=== PATIENT | female | born 2000 | race American Indian/Alaskan Native ===

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

== ENCOUNTER 2019-08-07 01:29 | Emergency (ER) | payer BC, MEDICAID ==
[2019-08-07 01:39] VITALS: BP 113/36
[2019-08-07] MEDS ORDERED: ACETAMINOPHEN 500 MG TAB PO ONE (02:32)
[2019-08-07] MEDS ORDERED: IBUPROFEN 600 MG TAB PO ONE (02:32)
[2019-08-07 03:52] LABS: Bilirubin,Urine NEG (Negative); Blood,Urine SM (Negative); Color,Urine Yellow (Yellow); Mucus,Urine 1+ /HPF; Protein,Urine <15 mg/dL mg/dL (Negative)
[2019-08-07 03:53] LABS: HCG Qualitative,Urine Negative (Negative)
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
== END 2019-08-07 05:12 | disposition home or self-care (01) ==
LOC: ED 01:29
DX: S43.401A Unspecified sprain of right shoulder joint, initial encounter (principal); S00.03XA Contusion of scalp, initial encounter; M62.830 Muscle spasm of back; M62.838 Other muscle spasm; J45.909 Unspecified asthma, uncomplicated; F17.200 Nicotine dependence, unspecified, uncomplicated; F12.90 Cannabis use, unspecified, uncomplicated; Z91.048 Other nonmedicinal substance allergy status; Z79.899 Other long term (current) drug therapy; V49.19XA Passenger injured in collision with other motor vehicles in nontraffic accident, initial encounter; Y93.89 Activity, other specified; Y92.410 Unspecified street and highway as the place of occurrence of the external cause; Y99.8 Other external cause status
CPT/HCPCS: 70450; 72100; 72125; 81001; 81025